=== PATIENT | male | born 1970 | race Caucasian/White ===

== ENCOUNTER 2018-08-14 13:15 | Emergency (ER) | payer OTHER ==
[2018-08-14 13:21] VITALS: BP 138/86; PULSE 85; TEMP 98.3; BMI 29.0
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
== END 2018-08-14 14:30 | disposition home or self-care (01) ==
LOC: JER 13:15
DX: M54.2 Cervicalgia (principal); M54.89 Other dorsalgia; M25.512 Pain in left shoulder; V43.52XA Car driver injured in collision with other type car in traffic accident, initial encounter; W22.11XA Striking against or struck by driver side automobile airbag, initial encounter; Y92.488 Other paved roadways as the place of occurrence of the external cause; Y93.89 Activity, other specified; Y99.8 Other external cause status
CPT/HCPCS: 99281-25